=== PATIENT | female | born 1985 | race Two or more races ===

== ENCOUNTER → 2024-12-27 | Emergency (ER) | payer OTHER ==
[~2024-12-27] VITALS: Ht 162.6 cm; Wt 64.9 kg
[~2024-12-27] MED LIST: AMOX1TAB5 PO; DEXAMETHASONE SODIUM PHOSPHATE 4 MG/ML VIAL IM STA; DEXAMETHASONE SODIUM PHOSPHATE 4 MG/ML VIAL ONE; JANUMET 50-5001 EACH; KETOROLAC TROMETHAMINE 30 MG VIAL IM STA; KETOROLAC TROMETHAMINE 30 MG VIAL ONE; LANTUS SOL100 UNIT/1
[2024-12-27 12:36] LABS: BASO % 0.5 % (0.1-1.2); EOS # 0.20 (0.04-0.54); EOS % 2.0 % (0.7-7.0); LYMPH # 2.74 (1.18-3.74); LYMPH % 27.9 % (19.3-53.1); MEAN PLATELET VOLUME 9.70 fl (9.4-12.4); MONO # 0.71 (0.24-0.82); MONO % 7.2 % (4.7-12.5); NEUT # 6.09 (1.56-6.13); NEUT % 62.2 % (34.0-71.1); RED CELL DISTRIBUTION WIDTH 12.0 % (11.6-14.4)
[2024-12-27 13:07] LABS: BUN CREA RATIO 14.0 (7.0-25.0); CREATININE SERUM 0.77 mg/dL (0.55-1.02); GFR 84.35; OSMOLALITY SERUM 289.0 MOSM/KG (275-295)
[2024-12-27 13:08] LABS: GLUCOSE FASTING 240.0 mg/dL (65-100); INR 1.04
[2024-12-27 13:11] LABS: URINE APPEARANCE Cloudy; URINE BILIRRUBIN Negative (NEGATIVE); URINE BLOOD Small; URINE COLOR Dark Yellow; URINE KETONE Negative (NEGATIVE); URINE LEUKOCYTE Moderate; URINE NITRATE Negative; URINE PROTEIN 30 (NEGATIVE); URINE UROBILINOGEN 1.0 E.U./dl
[2024-12-27 13:16] LABS: URINE BACTERIA 736.7 uL (0.0-1933); URINE EPITHELIAL CELLS 20.9 uL (0.0-38.8); URINE RBC 14.2 uL (0.0-20.8); URINE WBC 741.2 uL (0.0-23.2)
[2024-12-27 13:40] LABS: URINE CAST 0.73 uL (0.0-1.40); URINE GLUCOSE 250 MG/DL (NEGATIVE)
[2024-12-27 15:56] VITALS: BP 119/75; O2SAT 99
== END | disposition home or self-care (01) ==
LOC: ER 11:18
PROVIDERS: General Practice
DX: R30.0 Dysuria (principal); N94.9 Unspecified condition associated with female genital organs and menstrual cycle; N39.0 Urinary tract infection, site not specified; E11.9 Type 2 diabetes mellitus without complications; Z79.4 Long term (current) use of insulin